=== PATIENT | female | born 1960 | race Caucasian/White ===

== ENCOUNTER → 2023-12-10 14:21 | Outpatient (REF) | payer OTHER, SELFPAY | LOC: RAD 14:21 | PROVIDERS: ATTENDING PHYSICIAN Family Medicine | DX: Z78.0 Asymptomatic menopausal state (principal) | CPT/HCPCS: 77080 ==

== ENCOUNTER → 2023-12-18 07:34 | Outpatient (REF) | payer SELFPAY | LOC: RAD 07:34 | PROVIDERS: ATTENDING PHYSICIAN Family Medicine | DX: E78.00 Pure hypercholesterolemia, unspecified (principal) | CPT/HCPCS: 75571 ==

== ENCOUNTER → 2024-03-11 10:50 | Outpatient (REF) | payer OTHER, SELFPAY | LOC: WDC 10:50 | PROVIDERS: ATTENDING PHYSICIAN Obstetrics & Gynecology; FAMILY PHYSICIAN Family Medicine | DX: Z12.31 Encounter for screening mammogram for malignant neoplasm of breast (principal) | CPT/HCPCS: 77063; 77067 ==

== ENCOUNTER → 2025-03-02 14:07 | Outpatient (REF) | payer OTHER, SELFPAY | LOC: PAVMRI 14:07 | PROVIDERS: ATTENDING PHYSICIAN Pain Medicine Interventional Pain Medicine; FAMILY PHYSICIAN Family Medicine | DX: M54.16 Radiculopathy, lumbar region (principal) | CPT/HCPCS: 72148 ==

== ENCOUNTER → 2025-03-17 06:39 | Outpatient (REF) | payer OTHER, SELFPAY | LOC: WDC 06:39 | PROVIDERS: ATTENDING PHYSICIAN Obstetrics & Gynecology; FAMILY PHYSICIAN Family Medicine | DX: Z12.31 Encounter for screening mammogram for malignant neoplasm of breast (principal) | CPT/HCPCS: 77063; 77067 ==